=== PATIENT | male | born 1985 | race Caucasian/White ===

== ENCOUNTER 2018-01-09 15:47 | Emergency (ER) | payer BC ==
[~2018-01-09] VITALS: Ht 180.3 cm; Wt 92.1 kg
[2018-01-09 15:58] VITALS: Ht 180.3 cm; Wt 92.1 kg
[2018-01-09 17:09] VITALS: BP 140/76
== END 2018-01-09 17:09 | disposition home or self-care (01) ==
LOC: ED 15:47
DX: S52.572A Other intraarticular fracture of lower end of left radius, initial encounter for closed fracture (principal); S52.571A Other intraarticular fracture of lower end of right radius, initial encounter for closed fracture; W18.39XA Other fall on same level, initial encounter; Y93.89 Activity, other specified; Y92.89 Other specified places as the place of occurrence of the external cause; Y99.8 Other external cause status

== ENCOUNTER 2019-10-31 20:18 | Emergency (ER) | payer BC ==
[~2019-10-31] VITALS: Ht 180.3 cm; Wt 98.4 kg
[2019-10-31 20:32] VITALS: Ht 180.3 cm; Wt 98.4 kg
[2019-10-31 21:30] VITALS: BP 141/91
== END 2019-10-31 21:30 | disposition home or self-care (01) ==
LOC: ED 20:18
DX: S41.112A Laceration without foreign body of left upper arm, initial encounter (principal); Y04.8XXA Assault by other bodily force, initial encounter; Y93.89 Activity, other specified; Y92.89 Other specified places as the place of occurrence of the external cause; Y99.8 Other external cause status
CPT/HCPCS: 90715